=== PATIENT | male | born 1985 | race African-American/Black ===

== ENCOUNTER 2017-10-20 09:03 | Emergency (ER) | payer SELFPAY | END 2017-10-20 10:37 | disposition home or self-care (01) | LOC: ER 09:03 | DX: S60.011A Contusion of right thumb without damage to nail, initial encounter (principal); X58.XXXA Exposure to other specified factors, initial encounter; Y93.67 Activity, basketball; Y99.8 Other external cause status; Y92.89 Other specified places as the place of occurrence of the external cause | CPT/HCPCS: 73130; 99284 ==

== ENCOUNTER 2018-09-09 21:55 | Emergency (ER) | payer OTHER ==
[~2018-09-09] VITALS: Ht 185.4 cm; Wt 86.2 kg
[2018-09-09 23:05] VITALS: BP 115/74
[2018-09-09] MEDS ORDERED: DEXAMETHASONE SOD PHOS 20 MG/5 ML VIAL. IM ONE (23:55)
--- NOTE | 2018-09-10 00:10 | PHYS DOC ---
Past Medical History Past Medical History: No Pertinent History (SAL ODONNELL APRN) Past Surgical History: Other Additional Past Surgical Histo: L leg surgery (SAL ODONNELL APRN) Alcohol Use: None Drug Use: None (SAL ODONNELL APRN) Adult General Chief Complaint Chief Complaint: LOWER BACK PAIN OR INJURY HPI HPI Patient is a 33 year old AA male who presents to the ER with complaints of bilateral low back pain after falling while playing basketball a few hours ago. Pt states he has had intermittent problems with low back pain for the last 2 months. He denies any saddle anesthesia, loss of bowel/bladder control, numbness , tingling, or weakness of lower extremities. He denies radiation of pain to legs. Pt states that his pain is a constant 8/10 and shoots to a 10/10 with movement. (SAL ODONNELL APRN) Review of Systems Review of Systems Constitutional: Denies fever or chills [] GI: Denies abdominal pain : Denies dysuria or hematuria or loss of bladder control [] Musculoskeletal: see HPI Integument: Denies rash or skin lesions [] Neurologic: Denies focal weakness or sensory changes [] (SAL ODONNELL APRN) Current Medications Current Medications Current Medications Medications (Trade) Dose Ordered Sig/Damien Start Time Stop Time Status Last Admin Dose Admin Dexamethasone Sodium Phosphate (Decadron) 10 mg 1X ONCE 09/09/18 23:55 09/09/18 23:56 DC 09/10/18 00:04 10 MG (JERARDO PAL MD) Allergies Allergies Allergies Coded Allergies Type Severity Reaction Last Updated Verified No Known Drug Allergies 10/20/17 No (JERARDO PAL MD) Physical Exam Physical Exam Constitutional: Well developed, well nourished, no acute distress, non-toxic appearance. [] HENT: Normocephalic, atraumatic, bilateral external ears normal, nose normal. [] Eyes: conjunctiva normal, no discharge. [] Neck: Normal range of motion,no stridor. [] Lungs & Thorax: Patient is even and unlabored, no retractions Skin: Warm, dry, no erythema, no rash, no bruising [] Back: No bony tenderness, bilateral lumbar paraspinal tenderness to palpation Extremities: No cyanosis, ROM intact Neurologic: Alert and oriented X 3, normal motor function, normal sensory function, no focal deficits noted. [] Psychologic: Affect normal, judgement normal, mood normal. [] (ASL ODONNELL APRN) Current Patient Data Vital Signs Vital Signs Date Time Temp Pulse Resp B/P (MAP) Pulse Ox O2 Delivery O2 Flow Rate FiO2 09/09/18 23:05 98.1 61 16 115/74 (88) 100 Room Air 98.1 (JERARDO PAL MD) EKG EKG [] (SAL ODONNELL APRN) Radiology/Procedures Radiology/Procedures [] (SAL ODONNELL APRN) Course & Med Decision Making Course & Med Decision Making Pertinent Labs and Imaging studies reviewed. (See chart for details) dx: Low back pain Patient was given an IM injection of 10 mg of Decadron in the emergency department. He was driving so prescriptions were written for Norflex and naproxen. Patient was advised to just negativity as tolerated. Follow-up with primary care doctor if symptoms persist, return to the ER if symptoms worsen. []Patient verbalized an understanding of home care, medications, follow-up, and return to ED instructions and was in agreement with the plan of care.Patient verbalized an understanding of home care, medications, follow-up, and return to ED instructions and was in agreement with the plan of care. (SAL ODONNELL APRN) Course & Med Decision Making Staff Physician Addendum: I was working in the ER during the course of this patient's visit. I was available for consultation as needed, but I was not directly involved in the care of this patient. (JERARDO PAL MD) Dragon Disclaimer Dragon Disclaimer This electronic medical record was generated, in whole or in part, using a voice recognition dictation system. (SAL ODONNELL APRN) Departure Departure Impression: Primary Impression: Low back pain Disposition: HOME, SELF-CARE Condition: STABLE Referrals: NO PCP (PCP) Patient Instructions: Back Pain, Adult, [id number] Additional Instructions: Fill the Prescriptions and use as directed. Activity as tolerated. Follow-up with your primary care doctor symptoms persist, return to the ER symptoms worsen. Scripts Naproxen (NAPROXEN) 500 Mg Tablet 500 MG PO BID PRN for PAIN for 10 Days, #20 TAB 0 Refills Prov: SAL ODONNELL APRN 09/10/18 Orphenadrine Citrate (ORPHENADRINE CITRATE) 100 Mg Tablet.er 100 MG PO BID PRN for PAIN for 10 Days, #20 TAB.SR 0 Refills Prov: SAL ODONNELL APRN 09/10/18 Problem Qualifiers Primary Impression: Low back pain Chronicity: acute Back pain laterality: bilateral Sciatica presence: without sciatica Qualified Codes: M54.5 - Low back pain SAL ODONNELL APRN Sep 10, 2018 00:10 JERARDO PAL MD Sep 14, 2018 07:54
[2018-09-10] MEDS ORDERED: ORPH100T PO (00:19)
[2018-09-10] MEDS ORDERED: NAPR-514 PO (00:19)
== END 2018-09-10 00:34 | disposition home or self-care (01) ==
LOC: ER 21:55
DX: M54.5 Low back pain (principal); W18.39XA Other fall on same level, initial encounter; Y93.67 Activity, basketball; Y92.89 Other specified places as the place of occurrence of the external cause; Y99.8 Other external cause status
CPT/HCPCS: 96372; 99283; J1100